=== PATIENT | female | born 1990 | race Two or more races ===

== ENCOUNTER 2024-07-31 07:55 | Outpatient (CLI) | payer OTHER | END 2024-07-31 08:07 | disposition home or self-care (01) | LOC: PRENATAL 07:55 | PROVIDERS: ATTEND Obstetrics & Gynecology Maternal & Fetal Medicine | DX: O44.00 Complete placenta previa NOS or without hemorrhage, unspecified trimester (principal); O09.519 Supervision of elderly primigravida, unspecified trimester; O99.019 Anemia complicating pregnancy, unspecified trimester; O36.1999 Maternal care for other isoimmunization, unspecified trimester, other fetus; Z14.8 Genetic carrier of other disease; Z3A.24 24 weeks gestation of pregnancy ==

== ENCOUNTER 2024-08-31 11:06 | Outpatient (CLI) | payer OTHER | END 2024-08-31 11:07 | disposition home or self-care (01) | LOC: PRENATAL 11:06 | PROVIDERS: ATTEND Obstetrics & Gynecology Maternal & Fetal Medicine | DX: O44.00 Complete placenta previa NOS or without hemorrhage, unspecified trimester (principal); O26.849 Uterine size-date discrepancy, unspecified trimester; O09.519 Supervision of elderly primigravida, unspecified trimester; O99.019 Anemia complicating pregnancy, unspecified trimester; O36.1999 Maternal care for other isoimmunization, unspecified trimester, other fetus; Z14.8 Genetic carrier of other disease; Z3A.29 29 weeks gestation of pregnancy ==